=== PATIENT | female | born 1945 | race Caucasian/White ===

== ENCOUNTER 2018-04-15 13:25 | Emergency (ER) | payer OTHER ==
[2018-04-15] MEDS ORDERED: METHYLPREDNISOLONE 125 MG INJ ONE (13:42)
[2018-04-15] MEDS ORDERED: FAMOTIDINE 20 MG/2 ML VIAL IV ONE (13:42)
[2018-04-15] MEDS ORDERED: DIPHENHYDRAMINE 50 MG/ML VIAL ONE (13:42)
[2018-04-15] MEDS ORDERED: KETOROLAC 30 MG/ML INJ ONE (14:27)
--- NOTE | 2018-04-15 15:00 | EDPHYS ---
Physician Documentation [facility] Name: Giulia Gould Age: 72 yrs Sex: Female : 1945 Arrival Date: 04/15/2018 Time: 13:25 Bed 5 Private MD: Bryson Parker C ED Physician Manolo Nieto HPI: 04/15 13:53 This 72 yrs old Female presents to ER via Ambulatory with complaints of jr8 Allergic Reaction. 13:53 Onset: The symptoms/episode began/occurred acutely, just prior to arrival, today. jr8 Possible causes: batter mix. At home the patient or guardian has treated the symptoms with Benadryl. Severity of symptoms: At their worst the symptoms were moderate. The patient has not experienced similar symptoms in the past. The patient has not recently seen a physician. Patient stated that about 15 min after eating pancakes started to have throat swelling and difficulty breathing. Took benadryl at home which helped but not totally gone . Historical: - Allergies: 13:33 Ciprofloxacin; sg - PMHx: 13:33 allergies; COPD; Hypertension; Kidney stones; sg - PSHx: 13:33 Gastric Bypass; Cholecystectomy; Lithotripsy; Tonsillectomy; Knee surgery; cataract sx; sg Joint replacement; - Immunization history:: Adult Immunizations up to date. - Social history:: Smoking status: Patient/guardian denies using tobacco. - Ebola Screening: : Patient negative for fever greater than or equal to 101.5 degrees Fahrenheit, and additional compatible Ebola Virus Disease symptoms Patient denies exposure to infectious person Patient denies travel to an Ebola-affected area in the 21 days before illness onset No symptoms or risks identified at this time. ROS: 13:53 Eyes: Negative for injury, pain, redness, and discharge, ENT: Negative for injury, jr8 pain, and discharge, Neck: Negative for injury, pain, and swelling, Cardiovascular: Negative for chest pain, palpitations, and edema, Abdomen/GI: Negative for abdominal pain, nausea, vomiting, diarrhea, and constipation, Back: Negative for injury and pain, MS/Extremity: Negative for injury and deformity, Skin: Negative for injury, rash, and discoloration, Neuro: Negative for headache, weakness, numbness, tingling, and seizure. 13:53 Respiratory: Positive for shortness of breath. Exam: 13:53 Eyes: Pupils equal round and reactive to light, extra-ocular motions intact. Lids and jr8 lashes normal. Conjunctiva and sclera are non-icteric and not injected. Cornea within normal limits. Periorbital areas with no swelling, redness, or edema. ENT: Nares patent. No nasal discharge, no septal abnormalities noted. Tympanic membranes are normal and external auditory canals are clear. Oropharynx with no redness, swelling, or masses, exudates, or evidence of obstruction, uvula midline. Mucous membranes moist. Neck: Trachea midline, no thyromegaly or masses palpated, and no cervical lymphadenopathy. Supple, full range of motion without nuchal rigidity, or vertebral point tenderness. No Meningismus. Cardiovascular: Regular rate and rhythm with a normal S1 and S2. No gallops, murmurs, or rubs. Normal PMI, no JVD. No pulse deficits. Respiratory: Lungs have equal breath sounds bilaterally, clear to auscultation and percussion. No rales, rhonchi or wheezes noted. No increased work of breathing, no retractions or nasal flaring. Abdomen/GI: Soft, non-tender, with normal bowel sounds. No distension or tympany. No guarding or rebound. No evidence of tenderness throughout. Back: No spinal tenderness. No costovertebral tenderness. Full range of motion. Skin: Warm, dry with normal turgor. Normal color with no rashes, no lesions, and no evidence of cellulitis. MS/ Extremity: Pulses equal, no cyanosis. Neurovascular intact. Full, normal range of motion. Neuro: Awake and alert, GCS 15, oriented to person, place, time, and situation. Cranial nerves II-XII grossly intact. Motor strength 5/5 in all extremities. Sensory grossly intact. Cerebellar exam normal. Normal gait. 13:53 Head/face: Noted is swelling, that is mild, of the periorbital regions and face. Vital Signs: 13:30 BP 148 / 70; Pulse 79; Resp 20; Temp 97.1; Pulse Ox 97% ; sv 14:48 BP 148 / 71; Pulse 74; Resp 18; Pulse Ox 97% on R/A; sv 15:17 BP 146 / 71; Pulse 77; Resp 16; Pulse Ox 99% ; sv MDM: 13:37 Patient medically screened. jr8 14:59 Data reviewed: vital signs, nurses notes, and as a result, I will discharge patient. jr8 Data interpreted: Pulse oximetry: on room air is 97 %. Interpretation: normal. Counseling: I had a detailed discussion with the patient and/or guardian regarding: the historical points, exam findings, and any diagnostic results supporting the discharge/admit diagnosis, the need for outpatient follow up, a family practitioner, to return to the emergency department if symptoms worsen or persist or if there are any questions or concerns that arise at home. Response to treatment: the patient's symptoms have resolved after treatment. 04/15 13:37 Order name: IV; Complete Time: 13:38 jr8 Administered Medications: 13:46 Drug: Benadryl 25 mg Route: IVP; Site: left antecubital; sv 14:28 Follow up: Response: No adverse reaction sv 13:48 Drug: Pepcid 20 mg Route: IVP; Site: left antecubital; sv 14:28 Follow up: Response: No adverse reaction sv 13:50 Drug: SOLU-Medrol 125 mg Route: IVP; Site: left antecubital; sv 14:28 Follow up: Response: No adverse reaction sv 14:28 Drug: TORadol 30 mg Route: IVP; Site: left antecubital; sv 14:45 Follow up: Response: No adverse reaction sv Disposition: 18:36 Co-signature as Attending Physician, Manolo Nieto MD. rn Disposition: 04/15/18 14:59 Discharged to Home. Impression: Anaphylactic reaction due to food. - Condition is Stable. - Discharge Instructions: Anaphylactic Reaction. - Prescriptions for Pepcid 20 mg Oral Tablet - take 1 tablet by ORAL route once daily for 5 days; 5 tablet. Prednisone 20 mg Oral Tablet - take 1 tablet by ORAL route once daily for 5 days; 5 tablet. - Medication Reconciliation Form, Thank You Letter, Antibiotic Education, Prescription Opioid Use form. - Follow up: Bryson Parker MD; When: 1 - 2 days; Reason: Recheck today's complaints, Continuance of care, Re-evaluation by your physician. - Problem is new. - Symptoms have improved. - Notes: Benadryl as needed Signatures: Alanis Collazo RN RN sv Gay, Steven, RN RN sg Nieto, Roman, MD MD rn Roszak, Josh, PA PA jr8 Corrections: (The following items were deleted from the chart) 15:18 14:59 04/15/2018 14:59 Discharged to Home. Impression: Anaphylactic reaction due to sv food. Condition is Stable. Forms are Medication Reconciliation Form, Thank You Letter, Antibiotic Education, Prescription Opioid Use. Follow up: A Parker; When: 1 - 2 days; Reason: Recheck today's complaints, Continuance of care, Re-evaluation by your physician. Problem is new. Symptoms have improved. jr8
--- NOTE | 2018-04-15 15:00 | ER ---
Nurse's Notes [facility] Name: [facility] Age: 72 yrs Sex: Female : 1945 Arrival Date: 04/15/2018 Time: 13:25 Bed 5 Private MD: Bryson Parker C Diagnosis: Anaphylactic reaction due to food Presentation: 04/15 13:30 Presenting complaint: Patient states: Had [employer] brand pancakes this morning, Itching to sg mouth face and throat, redness to right side of face, pt reports a little SOB at this time. Transition of care: patient was not received from another setting of care. Onset: The symptoms/episode began/occurred gradually, this morning. Anaphylaxis evaluation, the patient reports or I have noted the following symptoms which indicate a significant risk of anaphylaxis: shortness of breath. Onset of symptoms was April 15, 2018. Risk Assessment: Do you want to hurt yourself or someone else? Patient reports no desire to harm self or others. Initial Sepsis Screen: Does the patient meet any 2 criteria? No. Patient's initial sepsis screen is negative. Does the patient have a suspected source of infection? No. Patient's initial sepsis screen is negative. Care prior to arrival: None. 13:30 Method Of Arrival: Ambulatory sg 13:30 Acuity: KEANU 3 sg Historical: - Allergies: 13:33 Ciprofloxacin; sg - PMHx: 13:33 allergies; COPD; Hypertension; Kidney stones; sg - PSHx: 13:33 Gastric Bypass; Cholecystectomy; Lithotripsy; Tonsillectomy; Knee surgery; cataract sx; sg Joint replacement; - Immunization history:: Adult Immunizations up to date. - Social history:: Smoking status: Patient/guardian denies using tobacco. - Ebola Screening: : Patient negative for fever greater than or equal to 101.5 degrees Fahrenheit, and additional compatible Ebola Virus Disease symptoms Patient denies exposure to infectious person Patient denies travel to an Ebola-affected area in the 21 days before illness onset No symptoms or risks identified at this time. Screenin:52 Abuse screen: Denies threats or abuse. Denies injuries from another. Nutritional sv screening: No deficits noted. Tuberculosis screening: No symptoms or risk factors identified. Fall Risk None identified. Assessment: 13:30 General: Appears in no apparent distress. uncomfortable, obese, Behavior is sv cooperative, appropriate for age, anxious. Pain: Denies pain. Neuro: Level of Consciousness is awake, alert, obeys commands, Oriented to person, place, time, situation, Moves all extremities. Full function Gait is steady, Speech muffled. Cardiovascular: Patient's skin is warm and dry. Respiratory: Reports shortness of breath at rest "hard time taking a breath in" Airway is patent Respiratory effort is even, unlabored, Respiratory pattern is regular, symmetrical. EENT: Lid(s) swelling and redness noted to bilateral eyes. Derm: Skin is normal, Reports itching, redness to the right side of her face. Musculoskeletal: Range of motion: intact in all extremities. 14:29 Reassessment: Patient appears in no apparent distress at this time. Patient and/or sv family updated on plan of care and expected duration. Pain level reassessed. Patient is alert, oriented x 3, equal unlabored respirations, skin warm/dry/pink. 15:17 Reassessment: Patient appears in no apparent distress at this time. Patient and/or sv family updated on plan of care and expected duration. Pain level reassessed. Patient is alert, oriented x 3, equal unlabored respirations, skin warm/dry/pink. Voice isn't muffled Patient states feeling better. Patient states symptoms have improved. Vital Signs: 13:30 BP 148 / 70; Pulse 79; Resp 20; Temp 97.1; Pulse Ox 97% ; sv 14:48 BP 148 / 71; Pulse 74; Resp 18; Pulse Ox 97% on R/A; sv 15:17 BP 146 / 71; Pulse 77; Resp 16; Pulse Ox 99% ; sv ED Course: 13:25 Patient arrived in ED. sb2 13:26 Bryson Parker MD is Private Physician. sb2 13:30 Patient has correct armband on for positive identification. Bed in low position. Call sv light in reach. Side rails up X2. Adult w/ patient. Pulse ox on. NIBP on. Door closed. Warm blanket given. Head of bed elevated. 13:31 Triage completed. sg 13:33 Arm band placed on. sg 13:35 Inserted saline lock: 20 gauge in left antecubital area, using aseptic technique. sv Flushed left antecubital with 5 ml normal saline. 13:37 Jose Jurado PA is PHCP. jr8 13:37 Manolo Nieto MD is Attending Physician. jr8 13:38 Alanis Collazo RN is Primary Nurse. sv 14:59 Bryson Parker MD is Referral Physician. jr8 15:17 No provider procedures requiring assistance completed. IV discontinued, intact, sv bleeding controlled, No redness/swelling at site. Pressure dressing applied. Administered Medications: 13:46 Drug: Benadryl 25 mg Route: IVP; Site: left antecubital; sv 14:28 Follow up: Response: No adverse reaction sv 13:48 Drug: Pepcid 20 mg Route: IVP; Site: left antecubital; sv 14:28 Follow up: Response: No adverse reaction sv 13:50 Drug: SOLU-Medrol 125 mg Route: IVP; Site: left antecubital; sv 14:28 Follow up: Response: No adverse reaction sv 14:28 Drug: TORadol 30 mg Route: IVP; Site: left antecubital; sv 14:45 Follow up: Response: No adverse reaction sv Outcome: 14:59 Discharge ordered by MD. jr8 15:17 Discharged to home via wheelchair, with family. sv 15:17 Condition: stable 15:17 Condition: improved 15:17 Discharge instructions given to patient, family, Instructed on discharge instructions, follow up and referral plans. medication usage, Demonstrated understanding of instructions, follow-up care, medications, Prescriptions given X 2. 15:18 Patient left the ED. sv Signatures: Alanis Collazo RN RN Michael Sheriff RN RN Jose Jurado PA PA jr8 [place] Esteban sb2 Corrections: (The following items were deleted from the chart) 13:57 13:30 Derm: Skin is normal, sv sv 15:18 13:30 Respiratory: Reports shortness of breath at rest "hard time taking a breath in" sv Airway is patent Respiratory effort is even, unlabored, Respiratory pattern is regular, symmetrical, sv 16:16 13:30 Neuro: Level of Consciousness is awake, alert, obeys commands, Oriented to sv person, place, time, situation, Moves all extremities. Full function Gait is steady, Speech is normal, sv
[2018-04-15 15:26] VITALS: TEMP 97.1
[2018-04-15 15:28] VITALS: BP 146/71; O2SAT 99
== END 2018-04-15 15:18 | disposition home or self-care (01) ==
LOC: ER 13:25
DX: T78.04XA Anaphylactic reaction due to fruits and vegetables, initial encounter (principal); X58.XXXA Exposure to other specified factors, initial encounter; Y92.019 Unspecified place in single-family (private) house as the place of occurrence of the external cause; Z88.1 Allergy status to other antibiotic agents; J44.9 Chronic obstructive pulmonary disease, unspecified; I10 Essential (primary) hypertension; Z87.442 Personal history of urinary calculi; Z98.84 Bariatric surgery status
CPT/HCPCS: 96374; 96375; 99284; J2930

== ENCOUNTER 2020-02-11 08:56 | Emergency (ER) | payer OTHER ==
[2020-02-11] MEDS ORDERED: TETRACAINE HCL 0.5% 4ML OPTH ONE (09:24)
[2020-02-11 09:44] LABS: Absolute Lymphocytes (CBC) 2.3 K/uL (0.7-4.9); Hematocrit 40.1 % (36.0-45.0); Lymphocytes % 45.5 % (15.3-44.8); MPV 8.3 fL (7.6-11.3); RBC Red Blood Cell Count 4.28 M/uL (3.86-4.86)
[2020-02-11 09:47] LABS: Protime INR 0.94
[2020-02-11 10:02] LABS: Potassium 4.8 mmol/L (3.5-5.1)
--- NOTE | 2020-02-11 10:19 | RAD REPORT ---
EXAM DESCRIPTION: CT - Head Brain Wo Cont - 02/11/2020 9:58 am CLINICAL HISTORY: blurred vision right eye Headache, drowsiness, visual disturbance COMPARISON: Head Brain Wo Cont dated 07/14/2017 TECHNIQUE: All CT scans are performed using dose optimization technique as appropriate and may inclu de automated exposure control or mA/KV adjustment according to patient size. FINDINGS: No intracranial hemorrhage, hydrocephalus or extra-axial fluid collection.No areas of brai n edema or evidence of midline shift. The paranasal sinuses and mastoids are clear. The calvarium is intact. IMPRESSION: No acute intracranial abnormality.
[2020-02-11] MEDS ORDERED: MEPERIDINE HCL 25 MG/0.5 ML ONE (10:39)
[2020-02-11] MEDS ORDERED: dexAMETHasone 10 MG/ML VIAL ONE (10:39)
--- NOTE | 2020-02-11 11:45 | RAD REPORT ---
EXAM DESCRIPTION: CT - Head angio - 02/11/2020 11:30 am CLINICAL HISTORY: blurred vision Headache, drowsiness, visual disturbances COMPARISON: Head Brain Wo Cont dated 02/11/2020; Head Brain Wo Cont dated 07/14/2017 TECHNIQUE: CT angiography of the head was performed with MIPs. All CT scans are performed using dose optimization technique as appropriate and may include automated exposure control or mA/KV adjustment according to patient size. FINDINGS: No evidence of aneurysm is detected. No flow-limiting stenosis or vascular malformation id entified. Antegrade flow is seen in the vertebral arteries. The left-sided vertebral artery is mildly dominant. The visualized dural venous sinuses are patent. IMPRESSION: No significant flow abnormality is detected.
--- NOTE | 2020-02-11 11:50 | RAD REPORT ---
EXAM DESCRIPTION: CT - Neck Angio - 02/11/2020 11:30 am CLINICAL HISTORY: blurred vision Headache, drowsiness, CVA symptomology COMPARISON: No comparisons TECHNIQUE: CT angiography of the neck vessels was performed with MIPs. All CT scans are performed using dose optimization technique as appropriate and may include automated exposure control or mA/KV adjustment according to patient size. FINDINGS: A left aortic arch is identified with normal three vessel configuration of the great vesse ls. No significant flow abnormality is seen of the common carotid bilaterally. No significant stenosis is identified involving the cervical segments of both internal carotid arteri es. Normal flow is seen within both vertebral arteries. IMPRESSION: No significant flow abnormality of the neck vessels is identified.
--- NOTE | 2020-02-11 11:55 | ER ---
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 Pt states "I am also having trouble focusing with my vision". 09:02 Coronavirus screen: Proceed with normal triage. Ebola Screen: Patient negative for aa5 fever greater than or equal to 101.5 degrees Fahrenheit, and additional compatible Ebola Virus Disease symptoms. Initial Sepsis Screen: Does the patient meet any 2 criteria? No. Patient's initial sepsis screen is negative. Does the patient have a suspected source of infection? No. Patient's initial sepsis screen is negative. Risk Assessment: Do you want to hurt yourself or someone else? Patient reports no desire to harm self or others. Onset of symptoms was February 11, 2020. 09:02 Acuity: KEANU 3 aa5 09:02 Method Of Arrival: Ambulatory aa5 Historical: - Allergies: 09:02 Ciprofloxacin; aa5 09:02 BACITRACIN; aa5 09:02 Tobramycin; aa5 - PMHx: 09:02 allergies; COPD; Hypertension; Kidney stones; aa5 - PSHx: 09:02 Gastric Bypass; Cholecystectomy; Lithotripsy; Tonsillectomy; cataract sx; Knee surgery; aa5 Joint replacement; - Immunization history:: Adult Immunizations up to date. - Family history:: not pertinent. - Social history:: Smoking status: Patient denies any tobacco usage or history of. - Hospitalizations: : No recent hospitalization is reported. Screenin:05 Abuse screen: Denies threats or abuse. Denies injuries from another. Nutritional ca1 screening: No deficits noted. Tuberculosis screening: No symptoms or risk factors identified. Fall Risk Secondary diagnosis (15 points) impaired vision. Assessment: 09:21 Reassessment: US and eye exam to right eye completed by . . aa5 10:05 General: Appears in no apparent distress. comfortable, Behavior is calm, cooperative, ca1 appropriate for age. Pain: Complains of pain in scalp Pain does not radiate. Pain currently is 1 out of 10 on a pain scale. Neuro: Level of Consciousness is awake, alert, obeys commands, Oriented to person, place, time, situation. Cardiovascular: Heart tones S1 S2 present Capillary refill < 3 seconds Patient's skin is warm and dry. Respiratory: Airway is patent Respiratory effort is even, unlabored, Respiratory pattern is regular, symmetrical, Breath sounds are clear bilaterally. GI: Abdomen is round non-distended, Bowel sounds present X 4 quads. Abd is soft and non tender X 4 quads. : No signs and/or symptoms were reported regarding the genitourinary system. EENT: Reports blurred vision in R eye reports inability to focus. Derm: Skin is intact, is healthy with good turgor, Skin is pink, warm \\T\\ dry. Musculoskeletal: Circulation, motion, and sensation intact. Capillary refill < 3 seconds. 10:48 Reassessment: Patient appears in no apparent distress at this time. Patient and/or ca1 family updated on plan of care and expected duration. Pain level reassessed. Patient is alert, oriented x 3, equal unlabored respirations, skin warm/dry/pink. PT for CT, IV inserted on AC. 11:00 Reassessment: Pt to CT. ca1 11:38 Reassessment: Patient appears in no apparent distress at this time. Patient and/or ca1 family updated on plan of care and expected duration. Pain level reassessed. Patient is alert, oriented x 3, equal unlabored respirations, skin warm/dry/pink. 11:41 Reassessment: Patient appears in no apparent distress at this time. Patient is alert, ca1 oriented x 3, equal unlabored respirations, skin warm/dry/pink. Pt back from CT. Pt states, "headache is still there but feels better, vision is still the same". Notified provider. 11:43 Reassessment: Pt IV on AC infiltrated, Ayo, business systems technician started another IV at CT. ca1 11:51 Reassessment: [phone] Cyrus Gould, . ca1 Vital Signs: 09:02 BP 150 / 82; Pulse 70; Resp 16 S; Temp 97.4(TE); Pulse Ox 100% on R/A; Pain 0/10; aa5 10:07 BP 144 / 76; Pulse 55; Resp 17 S; Pulse Ox 98% on R/A; ca1 11:38 BP 133 / 75; Pulse 62; Resp 17 S; Pulse Ox 100% on R/A; ca1 ED Course: 08:58 Patient arrived in ED. as 09:02 Manolo Nieto MD is Attending Physician. rn 09:02 Arm band placed on Patient placed in an exam room, on a stretcher. aa5 09:13 Triage completed. aa5 09:30 Initial lab(s) drawn, by in, sent to lab. Inserted saline lock: 20 gauge in right hand, aa5 using aseptic technique. 09:40 EKG done, by ED staff, reviewed by Manolo Nieto MD. kj1 09:57 CT Head Brain wo Cont In Process Unspecified. EDMS 10:02 Lexii Heath, RN is Primary Nurse. ca1 10:05 Patient has correct armband on for positive identification. Bed in low position. Call ca1 light in reach. Side rails up X2. Pulse ox on. NIBP on. Warm blanket given. 10:05 No provider procedures requiring assistance completed. ca1 10:47 Inserted saline lock: 22 gauge in right antecubital area, using aseptic technique. ca1 ,using aseptic technique. by MEDINA, medical record technician. 11:15 Inserted saline lock: 22 gauge in left forearm, using aseptic technique. ,using aseptic ca1 technique. by Ayo business systems technician. 11:30 CT Head Angio In Process Unspecified. EDMS 11:30 CT Neck Angio In Process Unspecified. EDMS 11:31 CT completed. Patient tolerated procedure well. Patient moved back from CT. bq 12:14 IV discontinued, intact, bleeding controlled, No redness/swelling at site. Pressure ca1 dressing applied. Administered Medications: 09:21 Drug: Tetracaine Drops 0.5 % 1 drops {Note: administered by .} Route: aa5 Ophthalmic; Site: right eye; 10:45 Drug: Decadron - Dexamethasone 10 mg Route: IVP; Site: right antecubital; ca1 12:06 Follow up: Response: No adverse reaction; Pain is decreased ca1 10:47 Drug: Demerol - Meperidine 12.5 mg {Note: RASS - 0.} Route: IVP; Site: right ca1 antecubital; 12:06 Follow up: Response: No adverse reaction; Pain is decreased; RASS: Alert and Calm (0) ca1 Outcome: 11:54 Discharge ordered by . rn 12:14 Discharged to home ambulatory. ca1 12:14 Condition: stable 12:14 Discharge instructions given to patient, Instructed on discharge instructions, follow up and referral plans. Demonstrated understanding of instructions, follow-up care. 12:14 Patient left the ED. ca1 Signatures: Dispatcher [employer] EDMS Tanja Proctor Amelia as Nieto, Roman, MD MD rn Jimena Lo RN RN aa5 Lexii Heath RN RN ca1 Anabella Mcallister kj1 Corrections: (The following items were deleted from the chart) 11:44 11:42 Inserted saline lock: 22 gauge in left forearm, using aseptic technique. ,using ca1 aseptic technique. by CLARIBEL Rollins tech. ca1
--- NOTE | 2020-02-11 11:55 | EDPHYS ---
Physician Documentation [facility] Name: Giulia Gould Age: 74 yrs Sex: Female : 1945 Arrival Date: 02/11/2020 Time: 08:58 Bed 5 Private MD: ED Physician Manolo Nieto HPI: 02/10 09:37 This 74 yrs old Female presents to ER via Ambulatory with complaints of rn Blurred Vision. 09:37 The patient is experiencing blurred vision, The patient sustained None. to the right rn eye, caused by an unknown mechanism. Onset: The symptoms/episode began/occurred noticed immediately upon awakening. Duration: the symptoms are continuous. Aggravated by nothing. Alleviated by nothing. Patient wears glasses. Severity of symptoms: At their worst the symptoms were moderate in the emergency department the symptoms are unchanged. The patient has not experienced similar symptoms in the past. Reports right eye blurred vision, noticed immediately when waking up, no trauma, just got new glasses this week and vision with glasses was 20/30, denies loss of vision in field, has global blurred vision, no pain. No other neurological complaint. Reports is legally blind left eye, and left vision is at baseline. No improvement since onset. . Historical: - Allergies: 09:02 Ciprofloxacin; aa5 09:02 BACITRACIN; aa5 09:02 Tobramycin; aa5 - PMHx: 09:02 allergies; COPD; Hypertension; Kidney stones; aa5 - PSHx: 09:02 Gastric Bypass; Cholecystectomy; Lithotripsy; Tonsillectomy; cataract sx; Knee surgery; aa5 Joint replacement; - Immunization history:: Adult Immunizations up to date. - Family history:: not pertinent. - Social history:: Smoking status: Patient denies any tobacco usage or history of. - Hospitalizations: : No recent hospitalization is reported. ROS: 09:37 Constitutional: Negative for fever, chills, and weight loss, Eyes: Negative for injury, rn pain, redness, and discharge, + blurred right vision ENT: Negative for injury, pain, and discharge, Neck: Negative for injury, pain, and swelling, Cardiovascular: Negative for chest pain, palpitations, and edema, Respiratory: Negative for shortness of breath, cough, wheezing, and pleuritic chest pain, Abdomen/GI: Negative for abdominal pain, nausea, vomiting, diarrhea, and constipation, MS/Extremity: Negative for injury and deformity, Skin: Negative for injury, rash, and discoloration, Neuro: Negative for headache, weakness, numbness, tingling, and seizure. Exam: 09:37 Visual Acuity: I have reviewed the nursing documentation. right eye 20/70. rn 09:37 Constitutional: This is a well developed, well nourished patient who is awake, alert, and in no acute distress. Head/Face: Normocephalic, atraumatic. Eyes: Pupils equal round and reactive to light, extra-ocular motions intact. Lids and lashes normal. Conjunctiva and sclera are non-icteric and not injected. Cornea within normal limits. Periorbital areas with no swelling, redness, or edema. Intacts visual kennedy to confrontation. ENT: MMM Neck: Trachea midline, no thyromegaly or masses palpated, and no cervical lymphadenopathy. Supple, full range of motion without nuchal rigidity, or vertebral point tenderness. No Meningismus. Cardiovascular: Bradycardic, Regular rhythm. No pulse deficits. Respiratory: No increased work of breathing, no retractions or nasal flaring. Skin: Warm, dry MS/ Extremity: Pulses equal, no cyanosis. Neurovascular intact. Full, normal range of motion. Equal circumference. Neuro: Awake and alert, GCS 15, oriented to person, place, time, and situation. Cranial nerves II-XII grossly intact. Motor strength 5/5 in all extremities. Sensory grossly intact. Cerebellar exam normal. Normal gait. 09:57 ECG was reviewed by the Attending Physician. rn Vital Signs: 09:02 BP 150 / 82; Pulse 70; Resp 16 S; Temp 97.4(TE); Pulse Ox 100% on R/A; Pain 0/10; aa5 10:07 BP 144 / 76; Pulse 55; Resp 17 S; Pulse Ox 98% on R/A; ca1 11:38 BP 133 / 75; Pulse 62; Resp 17 S; Pulse Ox 100% on R/A; ca1 Procedures: 09:25 Ultrasound: Type: Ocular, performed by the emergency department physician, Ocular rn bedside u/s performed by , no sign of retinal detachment, no vitreous hemorrhage. . Performed [place]. After 2 drops tetracaine in right eye, pressure measured, 15, normal. . MDM: 09:02 Patient medically screened. rn 09:56 ED course: Ocular massage several times did not help improve vision.. rn 10:19 ED course: Pt states has family member/friend who is local mail handlers supervisor, and rn believes she can see him today after ER visit if everything else looks ok. CT angio head/neck ordered, no signs or symptoms of temporal arteritis. . 11:39 ED course: Pt reported mild headache prior to CT scan, decadron and pain meds given to rn see if migraine or ocular migraine related. . 11:52 Differential diagnosis: CVA, CRAO, CRVO, glaucoma, retinal detachment, retinal rn hemorrhages, ocular migraine. Data reviewed: vital signs, nurses notes, lab test result(s), EKG, radiologic studies, CT scan, and as a result, I will discharge patient. Counseling: I had a detailed discussion with the patient and/or guardian regarding: the historical points, exam findings, and any diagnostic results supporting the discharge/admit diagnosis, lab results, radiology results, the need for outpatient follow up, to return to the emergency department if symptoms worsen or persist or if there are any questions or concerns that arise at home. Special discussion: I discussed with the patient/guardian in detail that at this point there is no indication for admission to the hospital. It is understood, however, that if the symptoms persist or worsen the patient needs to return immediately for re-evaluation. Based on the history and exam findings, there is no indication for further emergent testing or inpatient evaluation. I discussed with the patient/guardian the need to see the opthamologist for further evaluation of the symptoms. ED course: Pt with normal IOP, neg ct head and ct head/neck angio, normal vitals, no other focal neuro deficits. She states will see her eye doctor today upon discharge. Return precautions given and understood. . 02/10 09:16 Order name: CBC with Diff; Complete Time: 10:02 02/10 09:16 Order name: Basic Metabolic Panel; Complete Time: 10:02 02/10 09:16 Order name: Protime (+inr); Complete Time: 10:02 rn 02/10 09:16 Order name: Ptt, Activated; Complete Time: 10:02 02/10 09:16 Order name: CT Head Brain wo Cont; Complete Time: 10:21 02/10 09:40 Order name: Glucose, Ancillary Testing; Complete Time: 10:02 EDKY 02/10 09:16 Order name: IV Start; Complete Time: 09:37 rn 02/10 09:16 Order name: EKG; Complete Time: 09:17 rn 02/10 09:16 Order name: EKG - Nurse/Tech; Complete Time: 09:37 rn 02/10 10:03 Order name: CT Head Angio; Complete Time: 11:44 rn 02/10 10:03 Order name: CT Neck Angio; Complete Time: 11:44 rn EC:57 Rate is 53 beats/min. Rhythm is regular. QRS [place] is Normal. MI interval is normal. QRS rn interval is normal. QT interval is normal. No Q waves. T waves are Normal. No ST changes noted. Clinical impression: Sinus bradycardia and RBBB. Interpreted by me. Administered Medications: 09:21 Drug: Tetracaine Drops 0.5 % 1 drops {Note: administered by .} Route: aa5 Ophthalmic; Site: right eye; 10:45 Drug: Decadron - Dexamethasone 10 mg Route: IVP; Site: right antecubital; ca1 12:06 Follow up: Response: No adverse reaction; Pain is decreased ca1 10:47 Drug: Demerol - Meperidine 12.5 mg {Note: RASS - 0.} Route: IVP; Site: right ca1 antecubital; 12:06 Follow up: Response: No adverse reaction; Pain is decreased; RASS: Alert and Calm (0) ca1 Disposition: 02/11/20 11:54 Discharged to Home. Impression: Blurred vision. - Condition is Stable. - Discharge Instructions: Blurred Vision, Adult. - Medication Reconciliation Form, Thank You Letter, Antibiotic Education, Prescription Opioid Use form. - Follow up: Private Physician; When: Today; Reason: Recheck today's complaints, Re-evaluation by your physician. - Problem is new. - Symptoms are unchanged. Signatures: Dispatcher [employer] Manolo Cruz MD MD rn Calderon, Audri, RN RN aa5 Lexii Heath RN RN ca1 Corrections: (The following items were deleted from the chart) 12:14 11:54 02/11/2020 11:54 Discharged to Home. Impression: Blurred vision. Condition is ca1 Stable. Forms are Medication Reconciliation Form, Thank You Letter, Antibiotic Education, Prescription Opioid Use. Follow up: Private Physician; When: Today; Reason: Recheck today's complaints, Re-evaluation by your physician. Problem is new. Symptoms are unchanged. rn
[2020-02-11 12:23] VITALS: TEMP 97.4
[2020-02-11 12:25] VITALS: BP 133/75; O2SAT 100
--- NOTE | 2020-02-13 16:27 | EKG ---
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
== END 2020-02-11 12:14 | disposition home or self-care (01) ==
LOC: ER 08:56
DX: H53.8 Other visual disturbances (principal); I10 Essential (primary) hypertension; Z87.442 Personal history of urinary calculi; Z88.1 Allergy status to other antibiotic agents
CPT/HCPCS: 93005; 85025; 80048; 36415; 85610; 82947; 85730; 70450; 70496; 70498; 96375; 96374; 99284; Q9967; J1100; J2175